=== PATIENT | female | born 1950 | race Caucasian/White ===

== ENCOUNTER 2021-10-07 14:25 | Inpatient (IN) ==
[2021-10-07 15:02] LABS: ABS Lymphocytes 1.2 10^3/ul (1.0-4.8); ABS Monocytes 0.8 10^3/ul (0-0.8); ABS Neutrophils 13.9 10^3/ul (1.5-7.7); Hematocrit 30 % (35-47); Hemoglobin 9.8 g/dL (12.0-16.0); Lymphocyte % 7.2 %; Mean Corpuscular HGB Conc 32 g/dL (31-36); Mean Corpuscular Hemoglobin 27 pg (27-31); Mean Corpuscular Volume 82 fL (80-97); Mean Platelet Volume 6.7 fL (7.4-10.4); Platelet Count 403 10^3/uL (150-450); Red Blood Count 3.69 10^6 /uL (3.70-4.87); Red Cell Distribution Width 18 % (10-15); White Blood Count 15.9 10^3/uL (3.5-10.8)
[2021-10-07 15:15] LABS: Activated Partial Thrombo Time 49.3 seconds (26.0-38.0); INR 3.79 (0.86-1.15)
[2021-10-07] MEDS ORDERED: Vancomycin 1,250 MG in NS 0.9% 250 ml 250 ML IVPB ONE (15:52)
[2021-10-07] MEDS ORDERED: Dextrose 50% Syringe 50 ml 25 GM/50 ML SYRINGE ONE (16:09)
[2021-10-07] MEDS ORDERED: Dextrose 50% VIAL 50 ml IV PRN (16:16)
[2021-10-07] MEDS ORDERED: NS 0.9% 250 ml 250 ML ONE (16:33)
[2021-10-07 16:40] LABS: High Sensitivity Troponin 1 Hr 199 pg/mL (<15)
[2021-10-07 16:45] LABS: Albumin 2.1 g/dL (3.2-5.2); Calcium 6.8 mg/dL (8.6-10.3); Potassium 4.2 mmol/L (3.5-5.0); Total Bilirubin 0.1 mg/dL (0.2-1.0)
[2021-10-07 16:46] LABS: Albumin/Globulin Ratio 0.9 (1-3); C Reactive Protein 15.15 mg/L (<8.01); Globulin 2.4 g/dL (2-4); Total Protein 4.5 g/dL (6.4-8.9); eGFR CKD-EPI 53.1 (>60)
[2021-10-07] MEDS ORDERED: HYDROcodone/ACETAMIN 5/325 mg TAB PO ONE (16:52)
[2021-10-07] MEDS ORDERED: D10W 1000 ml BAG 1,000 ML IV SCH (17:00)
[2021-10-07 17:19] LABS: Urine Appearance Cloudy; Urine Bilirubin Negative (Negative); Urine Blood Negative (Negative); Urine Color Yellow; Urine Glucose 1+(50 mg/dL) (Negative); Urine Ketones Negative (Negative); Urine Nitrite Negative (Negative); Urine Protein 3+(>=500 mg/dL) (Negative); Urine Specific Gravity 1.015 (1.002-1.030); Urine Urobilinogen Negative (Negative)
[2021-10-07] MEDS ORDERED: Remdesivir 100 mg Vial 200 MG in NS 0.9% 250 ml 210 ML IV ONE (17:23)
[2021-10-07 17:24] LABS: Urine Bacteria Absent (Absent); Urine Red Blood Cell Trace(0-2/hpf) (Absent); Urine White Blood Cell Trace(0-5/hpf) (Absent)
[2021-10-07] MEDS ORDERED: Vancomycin 1500 MG IV - x ONCE IVPB ONE (18:00)
[2021-10-07] MEDS ORDERED: D5W 1000 ml BAG 1,000 ML IV SCH (18:00)
[2021-10-07] MEDS ORDERED: Vancomycin per Pharmacy 1 EA NOTE FOLLOW UP SCH (18:00)
[2021-10-07] MEDS ORDERED: Cefepime 2 GM in Dextrose 2 GM/50 ML BAG IV SCH (18:00)
[2021-10-07] MEDS ORDERED: HYDROcodone/ACETAMIN 5/325 mg TAB PO PRN (18:03)
[2021-10-07] MEDS: D5W 1/2 NS 1000 ml BAG 1,000 ML IV SCH (18:41)
[2021-10-07 18:53] LABS: TSH Ultra Thyroid Stim Horm 2.77 mcIU/mL (0.34-5.60)
[2021-10-08] MEDS: Cefepime 2 GM in Dextrose 2 GM/50 ML BAG IV SCH ×2 (00:54→18:20)
[2021-10-08] MEDS: D5W 1/2 NS 1000 ml BAG 1,000 ML IV SCH (09:26)
[2021-10-08 10:07] LABS: CO2 Carbon Dioxide 18 mmol/L (22-32); Calcium 6.6 mg/dL (8.6-10.3); Chloride 103 mmol/L (101-111); Magnesium 1.7 mg/dL (1.9-2.7); Sodium 134 mmol/L (135-145)
[2021-10-08 10:13] LABS: ALT 23 U/L (7-52); Albumin/Globulin Ratio 0.9 (1-3); Alkaline Phosphatase 89 U/L (35-149); Blood Urea Nitrogen 34 mg/dL (6-24); Globulin 2.3 g/dL (2-4); Glucose 109 mg/dL (70-100); Total Protein 4.3 g/dL (6.4-8.9); eGFR CKD-EPI 47.8 (>60)
[2021-10-08 10:25] LABS: Anion Gap 13 mmol/L (2-11)
[2021-10-08 12:21] LABS: ABS Lymphocytes 1.1 10^3/ul (1.0-4.8); ABS Monocytes 0.3 10^3/ul (0-0.8); ABS Neutrophils 8.4 10^3/ul (1.5-7.7); Hematocrit 30 % (35-47); Hemoglobin 9.4 g/dL (12.0-16.0); Lymphocyte % 11.1 %; Mean Corpuscular HGB Conc 32 g/dL (31-36); Mean Corpuscular Hemoglobin 26 pg (27-31); Mean Corpuscular Volume 83 fL (80-97); Platelet Count 398 10^3/uL (150-450); Red Blood Count 3.59 10^6 /uL (3.70-4.87); Red Cell Distribution Width 18 % (10-15); White Blood Count 9.8 10^3/uL (3.5-10.8)
[2021-10-08] MEDS ORDERED: Magnesium Sulfate 2 gm BAG 2 GM/50 ML BAG IVPB ONE (13:22)
[2021-10-08 14:07] LABS: INR 6.87 (0.86-1.15)
[2021-10-08 14:15] LABS: Potassium Redraw 4.1 mmol/L (3.5-5.0)
[2021-10-08] MEDS: Furosemide 40 mg/4 ml IV VIAL IV SLOW PU ONE (16:32)
[2021-10-08] MEDS: Vancomycin 1,500 MG in NS 0.9% 250 ml 250 ML IVPB SCH (20:08)
[2021-10-08] MEDS: Remdesivir 100 mg Vial 100 MG in NS 0.9% 250 ml 230 ML IV SCH (23:54)
[2021-10-09 00:31] LABS: PCO2 Arterial 48 mmHg (35-45); PO2 Arterial 84 mmHg (80-100)
[2021-10-09] MEDS ORDERED: Acetaminophen IV 1 GM/100ML 100 ML IV PRN (11:29)
[2021-10-09] MEDS ORDERED: Morphine 4 MG/ML VIAL (1 ml) ONE (11:32)
[2021-10-09] MEDS ORDERED: Morphine 4 MG/ML VIAL (1 ml) IV PRN (11:55)
[2021-10-09 14:08] LABS: ABS Lymphocytes 1.4 10^3/ul (1.0-4.8); ABS Monocytes 0.4 10^3/ul (0-0.8); ABS Neutrophils 9.4 10^3/ul (1.5-7.7); Eosinophil % 0.2 %; Hematocrit 28 % (35-47); Hemoglobin 8.8 g/dL (12.0-16.0); Lymphocyte % 12.7 %; Mean Corpuscular HGB Conc 31 g/dL (31-36); Mean Corpuscular Hemoglobin 26 pg (27-31); Mean Corpuscular Volume 83 fL (80-97); Mean Platelet Volume 6.8 fL (7.4-10.4); Platelet Count 348 10^3/uL (150-450); Red Blood Count 3.36 10^6 /uL (3.70-4.87); Red Cell Distribution Width 18 % (10-15); White Blood Count 11.2 10^3/uL (3.5-10.8)
[2021-10-09 14:30] LABS: Calcium 6.7 mg/dL (8.6-10.3); Magnesium 1.9 mg/dL (1.9-2.7); Potassium 4.1 mmol/L (3.5-5.0); eGFR CKD-EPI 40.4 (>60)
[2021-10-09 14:36] LABS: INR 6.58 (0.86-1.15)
[2021-10-09] MEDS ORDERED: Iodixanol (CONTRAST) 320 MG/ML 100 ML SDV IV ONE (15:09)
[2021-10-09] MEDS ORDERED: Phytonadione Oral Solution 5 MG/25 ML UDC PO ONE (16:35)
[2021-10-09] MEDS: Vancomycin 1,500 MG in NS 0.9% 250 ml 250 ML IVPB SCH (17:43)
[2021-10-09] MEDS ORDERED: NS 0.9% 500 ml BAG 500 ML IV ONE (17:58)
[2021-10-09] MEDS: HYDROcodone/ACETAMIN 5/325 mg TAB PO PRN (20:37)
[2021-10-09] MEDS: Senna TAB 8.6 mg TAB PO SCH (20:39)
[2021-10-09] MEDS: Cefepime 2 GM in Dextrose 2 GM/50 ML BAG IV SCH (20:43)
[2021-10-09] MEDS: Polyethylene Glycol 3350 17 GM PACKET PO SCH (21:10)
[2021-10-09] MEDS: CALCIUM GLUCONATE 1GM/50ML NS 1 GM/50 ML BAG IV SCH (22:06)
[2021-10-09] MEDS: Remdesivir 100 mg Vial 100 MG in NS 0.9% 250 ml 230 ML IV SCH (22:30)
[2021-10-10] MEDS: CALCIUM GLUCONATE 1GM/50ML NS 1 GM/50 ML BAG IV SCH (01:12)
[2021-10-10] MEDS: HYDROcodone/ACETAMIN 5/325 mg TAB PO PRN ×2 (02:22→17:32)
[2021-10-10] MEDS: Polyethylene Glycol 3350 17 GM PACKET PO SCH ×2 (08:32→14:29)
[2021-10-10] MEDS ORDERED: Etomidate 40 mg/20 ml (2 MG/ML) 20 ml VIAL (40 mg) ONE (08:58)
[2021-10-10] MEDS ORDERED: Dextrose 50% Syringe 50 ml 25 GM/50 ML SYRINGE ONE (12:48)
[2021-10-10] MEDS ORDERED: Vancomycin Trough Check NOTE FOLLOW UP ONE (16:30)
[2021-10-10 16:55] LABS: Hematocrit 28 % (35-47); Hemoglobin 8.7 g/dL (12.0-16.0); Mean Corpuscular HGB Conc 32 g/dL (31-36); Mean Corpuscular Hemoglobin 26 pg (27-31); Mean Corpuscular Volume 82 fL (80-97); Platelet Count 326 10^3/uL (150-450); Red Blood Count 3.34 10^6 /uL (3.70-4.87); Red Cell Distribution Width 18 % (10-15); White Blood Count 12.1 10^3/uL (3.5-10.8)
[2021-10-10 16:56] LABS: INR 1.63 (0.86-1.15)
[2021-10-10 17:09] LABS: Calcium 7.1 mg/dL (8.6-10.3); Magnesium 1.9 mg/dL (1.9-2.7); Potassium 4.2 mmol/L (3.5-5.0); eGFR CKD-EPI 33.6 (>60)
[2021-10-10] MEDS: Cefepime 2 GM in Dextrose 2 GM/50 ML BAG IV SCH (17:26)
[2021-10-10] MEDS: Vancomycin 1,500 MG in NS 0.9% 250 ml 250 ML IVPB SCH (17:59)
[2021-10-10] MEDS: Remdesivir 100 mg Vial 100 MG in NS 0.9% 250 ml 230 ML IV SCH (20:33)
[2021-10-11] MEDS: Senna TAB 8.6 mg TAB PO SCH ×2 (01:10→03:02)
[2021-10-11] MEDS: Polyethylene Glycol 3350 17 GM PACKET PO SCH ×2 (01:10→09:31)
[2021-10-11] MEDS: HYDROcodone/ACETAMIN 5/325 mg TAB PO PRN (03:02)
[2021-10-11] MEDS ORDERED: Warfarin per PHARMACY **NOTE FOLLOW UP SCH (08:00)
[2021-10-11] MEDS: Morphine 4 MG/ML VIAL (1 ml) IV PRN ×2 (10:20→15:29)
[2021-10-11] MEDS ORDERED: Vancomycin Random Level NOTE FOLLOW UP ONE (12:00)
[2021-10-11 13:20] LABS: Calcium 7.1 mg/dL (8.6-10.3); Magnesium 1.9 mg/dL (1.9-2.7); Potassium 4.3 mmol/L (3.5-5.0); eGFR CKD-EPI 30.6 (>60)
[2021-10-11 13:33] LABS: ABS Basophils 0.1 10^3/ul (0-0.2); ABS Monocytes 0.5 10^3/ul (0-0.8); ABS Neutrophils 14.1 10^3/ul (1.5-7.7); Hematocrit 29 % (35-47); Hemoglobin 8.9 g/dL (12.0-16.0); Lymphocyte % 6.1 %; Mean Corpuscular HGB Conc 31 g/dL (31-36); Mean Corpuscular Hemoglobin 26 pg (27-31); Mean Corpuscular Volume 82 fL (80-97); Platelet Count 319 10^3/uL (150-450); Red Blood Count 3.49 10^6 /uL (3.70-4.87); Red Cell Distribution Width 17 % (10-15); White Blood Count 15.7 10^3/uL (3.5-10.8)
[2021-10-11 14:21] LABS: Vancomycin Random 20.6 mcg/mL
[2021-10-11] MEDS: cefTRIAXone 2 GM ADDV.VIAL 2 GM in NS 0.9% 100 ml BAG 100 ML IV SCH (16:32)
[2021-10-11] MEDS ORDERED: Furosemide 40 mg/4 ml IV VIAL IV SLOW PU ONE (16:50)
[2021-10-11] MEDS: Remdesivir 100 mg Vial 100 MG in NS 0.9% 250 ml 230 ML IV SCH (21:49)
[2021-10-12] MEDS ORDERED: Furosemide 40 mg/4 ml IV VIAL ONE (04:13)
[2021-10-12] MEDS: Furosemide 40 mg/4 ml IV VIAL IV SLOW PU ONE (04:17)
[2021-10-12 05:19] LABS: INR 1.76 (0.86-1.15)
[2021-10-12 05:24] LABS: Hematocrit 31 % (35-47); Hemoglobin 9.6 g/dL (12.0-16.0); Mean Corpuscular HGB Conc 31 g/dL (31-36); Mean Corpuscular Hemoglobin 26 pg (27-31); Mean Corpuscular Volume 86 fL (80-97); Mean Platelet Volume 6.8 fL (7.4-10.4); Platelet Count 455 10^3/uL (150-450); Red Blood Count 3.65 10^6 /uL (3.70-4.87); Red Cell Distribution Width 18 % (10-15); White Blood Count 19.5 10^3/uL (3.5-10.8)
[2021-10-12 05:41] LABS: Blood Urea Nitrogen 46 mg/dL (6-24); CO2 Carbon Dioxide 20 mmol/L (22-32); Calcium 7.4 mg/dL (8.6-10.3); Chloride 107 mmol/L (101-111); Glucose 161 mg/dL (70-100); Sodium 136 mmol/L (135-145); eGFR CKD-EPI 25.6 (>60)
[2021-10-12 05:49] LABS: Anion Gap 9 mmol/L (2-11)
[2021-10-12 06:27] LABS: PCO2 Arterial 70 mmHg (35-45)
[2021-10-12 06:41] LABS: PO2 Arterial Temp Correct <38 mmHg (80-100)
[2021-10-12 08:05] LABS: PCO2 Arterial 50 mmHg (35-45); PO2 Arterial 159 mmHg (80-100)
[2021-10-12] MEDS ORDERED: Vancomycin 1,500 MG in NS 0.9% 250 ml 250 ML IVPB ONE (09:00)
[2021-10-12] MEDS ORDERED: Thrombin 5,000 UNITS 1 APPLIC KIT - topical use - TOPICAL ONE (10:00)
[2021-10-12] MEDS ORDERED: Dexamethasone IV 6 MG in NS 0.9% 50 ML 50 ML IVPB SCH (11:00)
[2021-10-12] MEDS: Dexamethasone IV 4 MG/ML VIAL 1 ml VIAL IV SLOW PU SCH (12:14)
[2021-10-12] MEDS ORDERED: LORazepam 2 mg VIAL 1 ml IV PUSH ONE (13:00)
[2021-10-12] MEDS ORDERED: Lorazepam PYXIS KEY ONE (13:01)
[2021-10-12] MEDS ORDERED: LORazepam 2 mg VIAL 1 ml ONE (13:01)
[2021-10-12] MEDS ORDERED: Warfarin - No Order Today **NOTE FOLLOW UP ONE (17:00)
[2021-10-12] MEDS ORDERED: Warfarin DAILY REMINDER **NOTE FOLLOW UP SCH (17:00)
[2021-10-12] MEDS: cefTRIAXone 2 GM ADDV.VIAL 2 GM in NS 0.9% 100 ml BAG 100 ML IV SCH (17:34)
[2021-10-12] MEDS ORDERED: Rocuronium 50 mg VIAL 10 mg/ml 5 ml VIAL (50 mg) ONE ×2 (20:40→20:54)
[2021-10-12] MEDS ORDERED: Succinylcholine 200 mg VIAL 20 mg/ml 10 ml VIAL (200 mg) ONE (20:40)
[2021-10-12] MEDS ORDERED: Propofol 10 mg/ml 100 ML BTL 100 ML ONE (20:42)
[2021-10-12] MEDS ORDERED: Norepinephrine 16MCG/ML BAGD5W 4,000 MCG/250 ML BAG IV ONE (20:42)
[2021-10-12] MEDS: Chlorhexidine MOUTHWASH 0.12% 15 ML UDC SWISH SPIT SCH (22:00)
[2021-10-12] MEDS ORDERED: Norepinephrine 16MCG/ML BAGD5W 4,000 MCG/250 ML BAG IV SCH (22:00)
[2021-10-12] MEDS ORDERED: Norepinephrine 16MCG/ML BAG NS 4,000 MCG/250 ML BAG IV SCH (22:00)
[2021-10-12] MEDS: Pantoprazole VIAL 40 MG VIAL IV SCH (22:00)
[2021-10-12] MEDS: Propofol 10 mg/ml 100 ML BTL 100 ML IV SCH (22:00)
[2021-10-13] MEDS: Chlorhexidine MOUTHWASH 0.12% 15 ML UDC SWISH SPIT SCH ×6 (02:00→22:27)
[2021-10-13 04:26] LABS: Hematocrit 32 % (35-47); Hemoglobin 9.7 g/dL (12.0-16.0); Mean Corpuscular HGB Conc 31 g/dL (31-36); Mean Corpuscular Hemoglobin 26 pg (27-31); Mean Corpuscular Volume 84 fL (80-97); Mean Platelet Volume 7.1 fL (7.4-10.4); Platelet Count 382 10^3/uL (150-450); Red Blood Count 3.73 10^6 /uL (3.70-4.87); Red Cell Distribution Width 18 % (10-15); White Blood Count 21.3 10^3/uL (3.5-10.8)
[2021-10-13 04:28] LABS: ABS Basophils 0.1 10^3/ul (0-0.2); ABS Lymphocytes 0.8 10^3/ul (1.0-4.8); ABS Monocytes 0.8 10^3/ul (0-0.8); ABS Neutrophils 19.6 10^3/ul (1.5-7.7); Lymphocyte % 3.7 %; Nucleated Red Blood Cells % 0.1
[2021-10-13 04:50] LABS: Albumin 1.9 g/dL (3.2-5.2); Albumin/Globulin Ratio 0.8 (1-3); Calcium 7.2 mg/dL (8.6-10.3); Globulin 2.4 g/dL (2-4); Potassium 4.6 mmol/L (3.5-5.0); Total Bilirubin 0.3 mg/dL (0.2-1.0); Total Protein 4.3 g/dL (6.4-8.9); Vancomycin Random 28.3 mcg/mL
[2021-10-13] MEDS ORDERED: Vancomycin Random Level NOTE FOLLOW UP ONE (06:00)
[2021-10-13] MEDS ORDERED: Furosemide 40 mg/4 ml IV VIAL IV ONE (08:44)
[2021-10-13] MEDS: Dexamethasone IV 4 MG/ML VIAL 1 ml VIAL IV SLOW PU SCH (09:28)
[2021-10-13] MEDS: Propofol 10 mg/ml 100 ML BTL 100 ML IV SCH ×2 (09:36→18:00)
[2021-10-13] MEDS ORDERED: Furosemide 100 mg/10 ml IV VIAL IV ONE (14:00)
[2021-10-13] MEDS: cefTRIAXone 2 GM ADDV.VIAL 2 GM in NS 0.9% 100 ml BAG 100 ML IV SCH (18:04)
[2021-10-13] MEDS: Pantoprazole VIAL 40 MG VIAL IV SCH (22:28)
[2021-10-14] MEDS: Chlorhexidine MOUTHWASH 0.12% 15 ML UDC SWISH SPIT SCH ×6 (01:28→21:58)
[2021-10-14] MEDS: Propofol 10 mg/ml 100 ML BTL 100 ML IV SCH ×2 (04:59→12:24)
[2021-10-14] MEDS ORDERED: Vancomycin Random Level NOTE FOLLOW UP ONE (06:00)
[2021-10-14 06:39] LABS: ABS Lymphocytes 0.9 10^3/ul (1.0-4.8); ABS Monocytes 0.7 10^3/ul (0-0.8); ABS Neutrophils 18.4 10^3/ul (1.5-7.7); Hematocrit 29 % (35-47); Hemoglobin 9.1 g/dL (12.0-16.0); Lymphocyte % 4.4 %; Mean Corpuscular HGB Conc 32 g/dL (31-36); Mean Corpuscular Hemoglobin 26 pg (27-31); Mean Corpuscular Volume 82 fL (80-97); Mean Platelet Volume 7.4 fL (7.4-10.4); Platelet Count 318 10^3/uL (150-450); Red Cell Distribution Width 19 % (10-15)
[2021-10-14 06:42] LABS: INR 3.06 (0.86-1.15)
[2021-10-14 06:59] LABS: Albumin 1.8 g/dL (3.2-5.2); Albumin/Globulin Ratio 0.8 (1-3); Calcium 7.2 mg/dL (8.6-10.3); Globulin 2.3 g/dL (2-4); Total Bilirubin 0.3 mg/dL (0.2-1.0); Total Protein 4.1 g/dL (6.4-8.9); Vancomycin Random 26.9 mcg/mL; eGFR CKD-EPI 20.9 (>60)
[2021-10-14] MEDS: Dexamethasone IV 4 MG/ML VIAL 1 ml VIAL IV SLOW PU SCH (08:40)
[2021-10-14] MEDS ORDERED: Furosemide 100 mg/10 ml IV VIAL IV ONE (10:15)
[2021-10-14] MEDS: cefTRIAXone 2 GM ADDV.VIAL 2 GM in NS 0.9% 100 ml BAG 100 ML IV SCH (17:42)
[2021-10-14] MEDS ORDERED: Dextrose 50% Syringe 50 ml 25 GM/50 ML SYRINGE IV PUSH PRN (18:44)
[2021-10-14] MEDS: Pantoprazole VIAL 40 MG VIAL IV SCH (21:58)
[2021-10-15] MEDS: Chlorhexidine MOUTHWASH 0.12% 15 ML UDC SWISH SPIT SCH ×6 (01:03→20:00)
[2021-10-15] MEDS: Propofol 10 mg/ml 100 ML BTL 100 ML IV SCH (01:53)
[2021-10-15 05:14] LABS: Hematocrit 28 % (35-47); Hemoglobin 8.6 g/dL (12.0-16.0); Mean Corpuscular HGB Conc 31 g/dL (31-36); Mean Corpuscular Hemoglobin 25 pg (27-31); Mean Corpuscular Volume 81 fL (80-97); Mean Platelet Volume 7.4 fL (7.4-10.4); Platelet Count 337 10^3/uL (150-450); Red Cell Distribution Width 18 % (10-15); White Blood Count 20.3 10^3/uL (3.5-10.8)
[2021-10-15 05:39] LABS: Albumin 1.7 g/dL (3.2-5.2); Albumin/Globulin Ratio 0.7 (1-3); Calcium 7.2 mg/dL (8.6-10.3); Globulin 2.3 g/dL (2-4); Potassium 3.6 mmol/L (3.5-5.0); Total Bilirubin 0.3 mg/dL (0.2-1.0); Vancomycin Random 23.9 mcg/mL
[2021-10-15 07:20] LABS: ABS Basophils 0.1 10^3/ul (0-0.2); ABS Lymphocytes 0.8 10^3/ul (1.0-4.8); ABS Monocytes 0.7 10^3/ul (0-0.8); ABS Neutrophils 18.7 10^3/ul (1.5-7.7); Lymphocyte % 3.8 %
[2021-10-15] MEDS: Dexamethasone IV 4 MG/ML VIAL 1 ml VIAL IV SLOW PU SCH (09:22)
[2021-10-15] MEDS: cefTRIAXone 2 GM ADDV.VIAL 2 GM in NS 0.9% 100 ml BAG 100 ML IV SCH (16:38)
[2021-10-15] MEDS: Dextran 70/Hypromellose Tears Eye Drops 15 ml BTL (for Artificials Tears) BOTH EYES PRN ×2 (18:07→20:10)
[2021-10-15] MEDS: Pantoprazole VIAL 40 MG VIAL IV SCH (22:01)
[2021-10-15] MEDS: Morphine 4 MG/ML VIAL (1 ml) IV PRN (22:01)
[2021-10-16] MEDS: Chlorhexidine MOUTHWASH 0.12% 15 ML UDC SWISH SPIT SCH ×6 (00:36→20:40)
[2021-10-16] MEDS: Dextran 70/Hypromellose Tears Eye Drops 15 ml BTL (for Artificials Tears) BOTH EYES PRN ×2 (04:29→20:43)
[2021-10-16 04:41] LABS: ABS Lymphocytes 1.1 10^3/ul (1.0-4.8); ABS Monocytes 0.8 10^3/ul (0-0.8); ABS Neutrophils 13.5 10^3/ul (1.5-7.7); Eosinophil % 0.1 %; Hematocrit 25 % (35-47); Hemoglobin 7.9 g/dL (12.0-16.0); Lymphocyte % 6.9 %; Mean Corpuscular HGB Conc 31 g/dL (31-36); Mean Corpuscular Hemoglobin 25 pg (27-31); Mean Corpuscular Volume 81 fL (80-97); Mean Platelet Volume 7.2 fL (7.4-10.4); Platelet Count 315 10^3/uL (150-450); Red Blood Count 3.12 10^6 /uL (3.70-4.87); Red Cell Distribution Width 18 % (10-15); White Blood Count 15.4 10^3/uL (3.5-10.8)
[2021-10-16] MEDS: Morphine 4 MG/ML VIAL (1 ml) IV PRN (05:00)
[2021-10-16 05:05] LABS: ALT 21 U/L (7-52); AST 18 U/L (13-39); Albumin < 1.7 g/dL (3.2-5.2); Albumin/Globulin Ratio 0.9 (1-3); Alkaline Phosphatase 70 U/L (35-149); Anion Gap 10 mmol/L (2-11); Blood Urea Nitrogen 55 mg/dL (6-24); CO2 Carbon Dioxide 23 mmol/L (22-32); Calcium 6.9 mg/dL (8.6-10.3); Chloride 109 mmol/L (101-111); Globulin 1.9 g/dL (2-4); Glucose 84 mg/dL (70-100); Magnesium 1.9 mg/dL (1.9-2.7); Phosphorus 5.5 mg/dL (2.5-5.0); Potassium 3.1 mmol/L (3.5-5.0); Sodium 142 mmol/L (135-145); Total Protein 3.6 g/dL (6.4-8.9); Vancomycin Random 23.1 mcg/mL; eGFR CKD-EPI 20.7 (>60)
[2021-10-16] MEDS ORDERED: Vancomycin Random Level NOTE FOLLOW UP ONE (06:00)
[2021-10-16] MEDS: Dexamethasone IV 4 MG/ML VIAL 1 ml VIAL IV SLOW PU SCH (08:20)
[2021-10-16] MEDS: KCL 20 MEQ/100 ML IVPREMIX 20 MEQ/100 ML BAG IV SCH ×2 (08:20→10:51)
[2021-10-16 10:43] LABS: INR 2.22 (0.86-1.15)
[2021-10-16] MEDS: cefTRIAXone 2 GM ADDV.VIAL 2 GM in NS 0.9% 100 ml BAG 100 ML IV SCH (16:18)
[2021-10-16] MEDS: Pantoprazole VIAL 40 MG VIAL IV SCH (20:40)
[2021-10-17] MEDS: Dextran 70/Hypromellose Tears Eye Drops 15 ml BTL (for Artificials Tears) BOTH EYES PRN ×3 (00:01→20:05)
[2021-10-17] MEDS: Chlorhexidine MOUTHWASH 0.12% 15 ML UDC SWISH SPIT SCH ×6 (00:01→20:14)
[2021-10-17 04:58] LABS: ABS Basophils 0.1 10^3/ul (0-0.2); ABS Lymphocytes 1.4 10^3/ul (1.0-4.8); ABS Monocytes 1.2 10^3/ul (0-0.8); ABS Neutrophils 14.9 10^3/ul (1.5-7.7); Eosinophil % 0.2 %; Hematocrit 26 % (35-47); Hemoglobin 8.3 g/dL (12.0-16.0); Lymphocyte % 7.8 %; Mean Corpuscular HGB Conc 32 g/dL (31-36); Mean Corpuscular Hemoglobin 26 pg (27-31); Mean Corpuscular Volume 82 fL (80-97); Mean Platelet Volume 7.2 fL (7.4-10.4); Platelet Count 307 10^3/uL (150-450); Red Blood Count 3.21 10^6 /uL (3.70-4.87); Red Cell Distribution Width 19 % (10-15); White Blood Count 17.6 10^3/uL (3.5-10.8)
[2021-10-17 05:04] LABS: INR 2.23 (0.86-1.15)
[2021-10-17 05:52] LABS: ALT 21 U/L (7-52); AST 19 U/L (13-39); Albumin < 1.7 g/dL (3.2-5.2); Albumin/Globulin Ratio 0.9 (1-3); Alkaline Phosphatase 69 U/L (35-149); Anion Gap 10 mmol/L (2-11); Blood Urea Nitrogen 56 mg/dL (6-24); CO2 Carbon Dioxide 23 mmol/L (22-32); Chloride 111 mmol/L (101-111); Glucose 85 mg/dL (70-100); Potassium 3.5 mmol/L (3.5-5.0); Sodium 144 mmol/L (135-145); Total Protein 3.7 g/dL (6.4-8.9); Vancomycin Random 21.5 mcg/mL; eGFR CKD-EPI 22.8 (>60)
[2021-10-17] MEDS ORDERED: Furosemide 40 mg/4 ml IV VIAL IV SLOW PU ONE (13:40)
[2021-10-17] MEDS: Morphine 4 MG/ML VIAL (1 ml) IV PRN (17:38)
[2021-10-18] MEDS: Chlorhexidine MOUTHWASH 0.12% 15 ML UDC SWISH SPIT SCH ×6 (01:26→21:06)
[2021-10-18 05:03] LABS: Hematocrit 28 % (35-47); Hemoglobin 8.6 g/dL (12.0-16.0); Mean Corpuscular HGB Conc 31 g/dL (31-36); Mean Corpuscular Hemoglobin 25 pg (27-31); Mean Corpuscular Volume 82 fL (80-97); Mean Platelet Volume 7.5 fL (7.4-10.4); Platelet Count 311 10^3/uL (150-450); Red Blood Count 3.39 10^6 /uL (3.70-4.87); Red Cell Distribution Width 18 % (10-15); White Blood Count 15.6 10^3/uL (3.5-10.8)
[2021-10-18 05:47] LABS: Potassium 2.9 mmol/L (3.5-5.0); eGFR CKD-EPI 25.6 (>60)
[2021-10-18] MEDS: KCL 20 MEQ/100 ML IVPREMIX 20 MEQ/100 ML BAG IV SCH ×5 (06:20→18:25)
[2021-10-18] MEDS: Famotidine SUSP ORALSYR 8 MG/ML G TUBE SCH (07:43)
[2021-10-18 07:55] LABS: Magnesium 1.9 mg/dL (1.9-2.7)
[2021-10-18] MEDS ORDERED: Magnesium Sulfate IV 1GM/100ML 1 GM/100 ML BAG IV ONE (08:03)
[2021-10-18] MEDS ORDERED: Furosemide 40 mg/4 ml IV VIAL IV ONE (09:37)
[2021-10-18] MEDS ORDERED: Warfarin per PHARMACY **NOTE FOLLOW UP SCH (10:00)
[2021-10-18] MEDS ORDERED: Sodium Phosphate ADULT ENEMA 133 ML BTL PR ONE (12:11)
[2021-10-18] MEDS ORDERED: Sodium Phosphate ADULT ENEMA 133 ML BTL ONE (12:24)
[2021-10-18] MEDS ORDERED: Mineral Oil ENEMA 118 ML/BOTTLE BOTTLE PR ONE (13:00)
[2021-10-19 00:08] LABS: Calcium 6.8 mg/dL (8.6-10.3); Potassium 3.7 mmol/L (3.5-5.0); eGFR CKD-EPI 33.1 (>60)
[2021-10-19 04:21] LABS: Hematocrit 29 % (35-47); Hemoglobin 8.9 g/dL (12.0-16.0); Mean Corpuscular HGB Conc 31 g/dL (31-36); Mean Corpuscular Hemoglobin 26 pg (27-31); Mean Corpuscular Volume 83 fL (80-97); Mean Platelet Volume 8.1 fL (7.4-10.4); Platelet Count 294 10^3/uL (150-450); Red Blood Count 3.45 10^6 /uL (3.70-4.87); Red Cell Distribution Width 19 % (10-15); White Blood Count 16.3 10^3/uL (3.5-10.8)
[2021-10-19 04:30] LABS: INR 1.45 (0.86-1.15)
[2021-10-19] MEDS: Chlorhexidine MOUTHWASH 0.12% 15 ML UDC SWISH SPIT SCH ×6 (04:46→22:49)
[2021-10-19 04:58] LABS: Calcium 7.2 mg/dL (8.6-10.3); Potassium 3.6 mmol/L (3.5-5.0)
[2021-10-19] MEDS ORDERED: Furosemide 40 mg/4 ml IV VIAL IV SLOW PU ONE (07:22)
[2021-10-19] MEDS ORDERED: KCL 20 MEQ/100 ML IVPREMIX 20 MEQ/100 ML BAG IV SCH (08:00)
[2021-10-19] MEDS: KCL premix 10 MEQ/50 ML x 4 RUNS IV SCH ×4 (08:09→11:52)
[2021-10-19] MEDS: Famotidine SUSP ORALSYR 8 MG/ML G TUBE SCH (08:12)
[2021-10-19] MEDS ORDERED: Piperacillin/Tazobac ADVAN 3.375 GM in NS 0.9% 100 ml BAG 100 ML IV ONE (09:35)
[2021-10-19] MEDS ORDERED: Zosyn per Pharmacy NOTE FOLLOW UP SCH (10:00)
[2021-10-19] MEDS ORDERED: Meropenem 1 GM PREMIX(*) 1 GM/50 ML BAG IV SCH (11:00)
[2021-10-19] MEDS: Aztreonam 1 GM in NS 0.9% 50 ML 50 ML IV SCH ×2 (11:52→21:48)
[2021-10-19] MEDS: Linezolid 600 MG IVPREMIX(*) 600 MG/300 ML BAG IVPB SCH (13:09)
[2021-10-19 13:20] LABS: Magnesium 1.7 mg/dL (1.9-2.7)
[2021-10-19] MEDS ORDERED: Magnesium Sulfate 2 gm BAG 2 GM/50 ML BAG IVPB ONE (13:39)
[2021-10-20] MEDS: Linezolid 600 MG IVPREMIX(*) 600 MG/300 ML BAG IVPB SCH ×2 (00:35→12:06)
[2021-10-20] MEDS: Chlorhexidine MOUTHWASH 0.12% 15 ML UDC SWISH SPIT SCH ×4 (02:27→16:01)
[2021-10-20 04:36] LABS: Hematocrit 25 % (35-47); Hemoglobin 7.8 g/dL (12.0-16.0); Mean Corpuscular HGB Conc 31 g/dL (31-36); Mean Corpuscular Hemoglobin 26 pg (27-31); Mean Corpuscular Volume 83 fL (80-97); Mean Platelet Volume 7.9 fL (7.4-10.4); Platelet Count 220 10^3/uL (150-450); Red Blood Count 3.04 10^6 /uL (3.70-4.87); Red Cell Distribution Width 19 % (10-15); White Blood Count 14.5 10^3/uL (3.5-10.8)
[2021-10-20 04:50] LABS: INR 1.36 (0.86-1.15)
[2021-10-20 05:12] LABS: Calcium 6.8 mg/dL (8.6-10.3); Magnesium 2.2 mg/dL (1.9-2.7); Potassium 3.3 mmol/L (3.5-5.0); eGFR CKD-EPI 34.9 (>60)
[2021-10-20] MEDS: Aztreonam 1 GM in NS 0.9% 50 ML 50 ML IV SCH ×3 (05:43→20:12)
[2021-10-20] MEDS ORDERED: Furosemide 40 mg/4 ml IV VIAL IV SLOW PU ONE (07:36)
[2021-10-20] MEDS: Famotidine SUSP ORALSYR 8 MG/ML G TUBE SCH (08:50)
[2021-10-20] MEDS: KCL 20 MEQ/100 ML IVPREMIX 20 MEQ/100 ML BAG IV SCH ×3 (08:50→13:52)
[2021-10-21] MEDS: Linezolid 600 MG IVPREMIX(*) 600 MG/300 ML BAG IVPB SCH ×3 (00:37→23:12)
[2021-10-21 04:33] LABS: Hematocrit 24 % (35-47); Hemoglobin 7.6 g/dL (12.0-16.0); Mean Corpuscular HGB Conc 31 g/dL (31-36); Mean Corpuscular Hemoglobin 26 pg (27-31); Mean Corpuscular Volume 83 fL (80-97); Mean Platelet Volume 7.9 fL (7.4-10.4); Platelet Count 207 10^3/uL (150-450); Red Blood Count 2.92 10^6 /uL (3.70-4.87); Red Cell Distribution Width 19 % (10-15); White Blood Count 13.7 10^3/uL (3.5-10.8)
[2021-10-21 04:36] LABS: INR 1.82 (0.86-1.15)
[2021-10-21] MEDS: Aztreonam 1 GM in NS 0.9% 50 ML 50 ML IV SCH ×3 (04:40→20:28)
[2021-10-21 05:00] LABS: Calcium 6.8 mg/dL (8.6-10.3); Magnesium 1.9 mg/dL (1.9-2.7); eGFR CKD-EPI 45.1 (>60)
[2021-10-21 05:09] LABS: Calcium 6.9 mg/dL (8.6-10.3); Magnesium 1.9 mg/dL (1.9-2.7)
[2021-10-21 05:17] LABS: eGFR CKD-EPI 43.8 (>60)
[2021-10-21 05:18] LABS: Phosphorus 2.9 mg/dL (2.5-5.0)
[2021-10-21] MEDS: KCL 20 MEQ/100 ML IVPREMIX 20 MEQ/100 ML BAG IV SCH ×3 (05:42→11:31)
[2021-10-21] MEDS ORDERED: Magnesium Sulfate IV 1GM/100ML 1 GM/100 ML BAG IV ONE (07:30)
[2021-10-21] MEDS ORDERED: KCL 20 MEQ/100 ML IVPREMIX 20 MEQ/100 ML BAG IV SCH (08:00)
[2021-10-21] MEDS: Famotidine SUSP ORALSYR 8 MG/ML G TUBE SCH (08:37)
[2021-10-21] MEDS: Saline FLUSH-PERIPHERAL 10 ML SYRINGE IV FLUSH SCH ×2 (11:32→19:23)
[2021-10-21 12:08] LABS: C Reactive Protein 115.67 mg/L (<8.01)
[2021-10-21 16:17] LABS: eGFR CKD-EPI 49.8 (>60)
[2021-10-22] MEDS: Saline FLUSH-PERIPHERAL 10 ML SYRINGE IV FLUSH SCH ×3 (03:47→19:54)
[2021-10-22] MEDS: Aztreonam 1 GM in NS 0.9% 50 ML 50 ML IV SCH ×3 (03:48→19:53)
[2021-10-22 04:50] LABS: Hematocrit 26 % (35-47); Mean Corpuscular HGB Conc 31 g/dL (31-36); Mean Corpuscular Hemoglobin 26 pg (27-31); Mean Corpuscular Volume 83 fL (80-97); Platelet Count 202 10^3/uL (150-450); Red Blood Count 3.14 10^6 /uL (3.70-4.87); Red Cell Distribution Width 20 % (10-15); White Blood Count 13.7 10^3/uL (3.5-10.8)
[2021-10-22 05:32] LABS: INR 2.31 (0.86-1.15)
[2021-10-22 05:37] LABS: Calcium 6.8 mg/dL (8.6-10.3); Potassium 3.6 mmol/L (3.5-5.0); eGFR CKD-EPI 52.5 (>60)
[2021-10-22] MEDS ORDERED: Furosemide 40 mg/4 ml IV VIAL IV SLOW PU ONE (09:04)
[2021-10-22] MEDS: Famotidine SUSP ORALSYR 8 MG/ML G TUBE SCH (09:22)
[2021-10-22] MEDS: KCL 20 MEQ/100 ML IVPREMIX 20 MEQ/100 ML BAG IV SCH ×2 (09:38→11:48)
[2021-10-22 18:47] LABS: Blood Urea Nitrogen 37 mg/dL (6-24); CO2 Carbon Dioxide 19 mmol/L (22-32); Glucose 107 mg/dL (70-100); Magnesium 1.4 mg/dL (1.9-2.7); Sodium 142 mmol/L (135-145); eGFR CKD-EPI 85.4 (>60)
[2021-10-22 18:53] LABS: Anion Gap 4 mmol/L (2-11); Calcium 4.8 mg/dL (8.6-10.3); Chloride 119 mmol/L (101-111)
[2021-10-22 20:53] LABS: Potassium 3.6 mmol/L (3.5-5.0); eGFR CKD-EPI 53.1 (>60)
[2021-10-23] MEDS: Saline FLUSH-PERIPHERAL 10 ML SYRINGE IV FLUSH SCH ×3 (04:16→17:57)
[2021-10-23] MEDS: Aztreonam 1 GM in NS 0.9% 50 ML 50 ML IV SCH ×3 (05:41→21:10)
[2021-10-23 05:57] LABS: Hematocrit 27 % (35-47); Hemoglobin 8.1 g/dL (12.0-16.0); Mean Corpuscular HGB Conc 31 g/dL (31-36); Mean Corpuscular Hemoglobin 26 pg (27-31); Mean Corpuscular Volume 84 fL (80-97); Mean Platelet Volume 7.7 fL (7.4-10.4); Platelet Count 210 10^3/uL (150-450); Red Blood Count 3.18 10^6 /uL (3.70-4.87); Red Cell Distribution Width 20 % (10-15); White Blood Count 12.2 10^3/uL (3.5-10.8)
[2021-10-23 06:04] LABS: INR 2.14 (0.86-1.15)
[2021-10-23 06:40] LABS: Potassium 3.6 mmol/L (3.5-5.0); eGFR CKD-EPI 55.5 (>60)
[2021-10-23] MEDS ORDERED: KCL 20 MEQ/100 ML IVPREMIX 20 MEQ/100 ML BAG IV SCH (08:00)
[2021-10-23] MEDS: Famotidine SUSP ORALSYR 8 MG/ML G TUBE SCH (08:30)
[2021-10-23] MEDS: KCL premix 10 MEQ/50 ML x 4 RUNS IV SCH ×4 (09:13→13:41)
[2021-10-23] MEDS ORDERED: Furosemide 20 mg/2 ml IV VIAL IV SLOW PU ONE (11:02)
[2021-10-23] MEDS: CMCS: Oral Rinse (Biotene)(NF) 237 ML or 473 ML ORAL RINSE BTL MT SCH (21:35)
[2021-10-24] MEDS: Saline FLUSH-PERIPHERAL 10 ML SYRINGE IV FLUSH SCH ×3 (04:18→18:26)
[2021-10-24] MEDS: Aztreonam 1 GM in NS 0.9% 50 ML 50 ML IV SCH ×3 (05:43→20:58)
[2021-10-24 06:33] LABS: Hematocrit 26 % (35-47); Hemoglobin 8.1 g/dL (12.0-16.0); Mean Corpuscular HGB Conc 31 g/dL (31-36); Mean Corpuscular Hemoglobin 26 pg (27-31); Mean Corpuscular Volume 84 fL (80-97); Mean Platelet Volume 7.7 fL (7.4-10.4); Platelet Count 202 10^3/uL (150-450); Red Blood Count 3.07 10^6 /uL (3.70-4.87); Red Cell Distribution Width 20 % (10-15); White Blood Count 14.3 10^3/uL (3.5-10.8)
[2021-10-24 06:42] LABS: INR 2.15 (0.86-1.15)
[2021-10-24] MEDS ORDERED: Furosemide 40 mg/4 ml IV VIAL IV SLOW PU ONE (08:16)
[2021-10-24 08:39] LABS: Calcium 7.1 mg/dL (8.6-10.3); Potassium 3.9 mmol/L (3.5-5.0); eGFR CKD-EPI 58.8 (>60)
[2021-10-24] MEDS: Famotidine SUSP ORALSYR 8 MG/ML G TUBE SCH (09:15)
[2021-10-24] MEDS: CMCS: Oral Rinse (Biotene)(NF) 237 ML or 473 ML ORAL RINSE BTL MT SCH (09:18)
[2021-10-24] MEDS: HYDROmorphone 0.5 MG/0.5 ML SYRINGE IV PRN (22:16)
[2021-10-25] MEDS ORDERED: D5W 1/2 NS 1000 ml BAG 1,000 ML IV SCH (02:00)
[2021-10-25] MEDS: HYDROmorphone 0.5 MG/0.5 ML SYRINGE IV PRN ×2 (02:17→21:18)
[2021-10-25] MEDS: Saline FLUSH-PERIPHERAL 10 ML SYRINGE IV FLUSH SCH ×3 (02:18→20:55)
[2021-10-25] MEDS: Aztreonam 1 GM in NS 0.9% 50 ML 50 ML IV SCH ×3 (03:55→21:12)
[2021-10-25 04:07] LABS: Hematocrit 25 % (35-47); Hemoglobin 7.4 g/dL (12.0-16.0); INR 2.13 (0.86-1.15); Mean Corpuscular HGB Conc 30 g/dL (31-36); Mean Corpuscular Hemoglobin 26 pg (27-31); Mean Corpuscular Volume 86 fL (80-97); Mean Platelet Volume 7.6 fL (7.4-10.4); Platelet Count 167 10^3/uL (150-450); Red Blood Count 2.91 10^6 /uL (3.70-4.87); Red Cell Distribution Width 20 % (10-15); White Blood Count 13.6 10^3/uL (3.5-10.8)
[2021-10-25 04:42] LABS: Calcium 6.8 mg/dL (8.6-10.3); Magnesium 1.9 mg/dL (1.9-2.7); Potassium 3.8 mmol/L (3.5-5.0)
[2021-10-25 04:48] LABS: eGFR CKD-EPI 58.8 (>60)
[2021-10-25] MEDS ORDERED: Potassium Chloride LIQUID 20 MEQ/15 ML LIQUID PO ONE (07:44)
[2021-10-25] MEDS ORDERED: Magnesium Sulfate IV 1GM/100ML 1 GM/100 ML BAG IV ONE (07:44)
[2021-10-25] MEDS: Famotidine SUSP ORALSYR 8 MG/ML G TUBE SCH (08:03)
[2021-10-25] MEDS ORDERED: Furosemide 40 mg/4 ml IV VIAL IV SLOW PU ONE (10:08)
[2021-10-25 16:01] LABS: CO2 Carbon Dioxide 24 mmol/L (22-32); Chloride 110 mmol/L (101-111); Magnesium 2.2 mg/dL (1.9-2.7); Sodium 141 mmol/L (135-145)
[2021-10-25 16:03] LABS: Anion Gap 7 mmol/L (2-11)
[2021-10-25 16:06] LABS: Blood Urea Nitrogen 57 mg/dL (6-24); C Reactive Protein 111.01 mg/L (<8.01); Glucose 130 mg/dL (70-100); eGFR CKD-EPI 60.2 (>60)
[2021-10-25] MEDS ORDERED: Lorazepam PYXIS KEY PRN (22:06)
[2021-10-25] MEDS: LORazepam 2 mg VIAL 1 ml IV PUSH PRN (22:26)
[2021-10-26] MEDS: HYDROmorphone 0.5 MG/0.5 ML SYRINGE IV PRN (01:39)
[2021-10-26] MEDS: LORazepam 2 mg VIAL 1 ml IV PUSH PRN (02:43)
[2021-10-26] MEDS: Saline FLUSH-PERIPHERAL 10 ML SYRINGE IV FLUSH SCH ×3 (03:57→19:03)
[2021-10-26] MEDS: Aztreonam 1 GM in NS 0.9% 50 ML 50 ML IV SCH (04:46)
[2021-10-26 08:31] LABS: Hematocrit 20 % (35-47); Hemoglobin 6.3 g/dL (12.0-16.0); Mean Corpuscular HGB Conc 31 g/dL (31-36); Mean Corpuscular Hemoglobin 26 pg (27-31); Mean Corpuscular Volume 85 fL (80-97); Mean Platelet Volume 7.4 fL (7.4-10.4); Platelet Count 191 10^3/uL (150-450); Red Cell Distribution Width 20 % (10-15); White Blood Count 15.3 10^3/uL (3.5-10.8)
[2021-10-26 08:39] LABS: INR 2.32 (0.86-1.15)
[2021-10-26] MEDS: Famotidine SUSP ORALSYR 8 MG/ML G TUBE SCH (09:12)
[2021-10-26] MEDS: CMCS: Oral Rinse (Biotene)(NF) 237 ML or 473 ML ORAL RINSE BTL MT SCH (09:12)
[2021-10-26 09:44] LABS: Calcium 7.1 mg/dL (8.6-10.3); Magnesium 2.1 mg/dL (1.9-2.7); Potassium 3.7 mmol/L (3.5-5.0)
[2021-10-26 09:46] LABS: Hematocrit 24 % (35-47); Hemoglobin 7.3 g/dL (12.0-16.0)
[2021-10-26 09:50] LABS: eGFR CKD-EPI 59.5 (>60)
[2021-10-26] MEDS ORDERED: Furosemide 40 mg/4 ml IV VIAL IV SLOW PU ONE (09:57)
[2021-10-26] MEDS ORDERED: Naloxone Nasal Spray 4 MG/0.1 ML NASAL.SPR INTRANASAL ONE (10:14)
[2021-10-26] MEDS ORDERED: Acetaminophen IV 1 GM/100ML 100 ML IV PRN (10:17)
[2021-10-26] MEDS ORDERED: Potassium Chloride LIQUID 20 MEQ/15 ML LIQUID PO ONE (10:48)
[2021-10-26] MEDS: Cefepime 2 GM in Dextrose 2 GM/50 ML BAG IV SCH ×2 (12:32→22:53)
[2021-10-26] MEDS: metroNIDAZOLE IV 500 MG/100ML 500 MG/100 ML BAG IVPB SCH ×2 (13:19→22:08)
[2021-10-26 15:53] LABS: Hematocrit 22 % (35-47); Hemoglobin 6.8 g/dL (12.0-16.0)
[2021-10-26] MEDS: Acetaminophen IV 1 GM/100ML 100 ML IV SCH (22:09)
[2021-10-26] MEDS: Pantoprazole VIAL 40 MG VIAL IV SCH (22:16)
[2021-10-27 01:38] LABS: Hematocrit 23 % (35-47); Hemoglobin 7.4 g/dL (12.0-16.0)
[2021-10-27] MEDS: Acetaminophen IV 1 GM/100ML 100 ML IV SCH ×3 (02:11→15:16)
[2021-10-27] MEDS: metroNIDAZOLE IV 500 MG/100ML 500 MG/100 ML BAG IVPB SCH (04:31)
[2021-10-27] MEDS: Saline FLUSH-PERIPHERAL 10 ML SYRINGE IV FLUSH SCH ×3 (04:31→23:12)
[2021-10-27] MEDS: Pantoprazole VIAL 40 MG VIAL IV SCH ×2 (08:07→23:18)
[2021-10-27] MEDS: Cefepime 2 GM in Dextrose 2 GM/50 ML BAG IV SCH ×2 (11:34→23:18)
[2021-10-27 13:45] LABS: Hematocrit 18 % (35-47); Hemoglobin 5.5 g/dL (12.0-16.0); Mean Corpuscular HGB Conc 30 g/dL (31-36); Mean Corpuscular Hemoglobin 27 pg (27-31); Mean Corpuscular Volume 88 fL (80-97); Platelet Count 140 10^3/uL (150-450); Red Blood Count 2.06 10^6 /uL (3.70-4.87); Red Cell Distribution Width 19 % (10-15); White Blood Count 12.1 10^3/uL (3.5-10.8)
[2021-10-27 13:50] LABS: INR 2.68 (0.86-1.15)
[2021-10-27 14:16] LABS: Calcium 6.5 mg/dL (8.6-10.3); eGFR CKD-EPI 49.8 (>60)
[2021-10-27 14:18] LABS: Activated Partial Thrombo Time 37.2 seconds (26.0-38.0); Fibrinogen 306.9 mg/dL (110.8-404.3)
[2021-10-27 14:20] LABS: Potassium 5.1 mmol/L (3.5-5.0)
[2021-10-27 22:39] LABS: Hematocrit 28 % (35-47); Hemoglobin 9.4 g/dL (12.0-16.0)
[2021-10-27] MEDS: Acetaminophen IV 1 GM/100ML 100 ML IV PRN (23:35)
[2021-10-28] MEDS: Saline FLUSH-PERIPHERAL 10 ML SYRINGE IV FLUSH SCH ×3 (03:19→19:54)
[2021-10-28] MEDS ORDERED: Norepinephrine 16MCG/ML BAG NS 4,000 MCG/250 ML BAG IV SCH ×2 (03:58→04:45)
[2021-10-28] MEDS: Norepinephrine 16MCG/ML BAGD5W 4,000 MCG/250 ML BAG IV ONE ×2 (04:03→04:52)
[2021-10-28 04:20] LABS: ABS Basophils 0.1 10^3/ul (0-0.2); ABS Lymphocytes 2.5 10^3/ul (1.0-4.8); ABS Neutrophils 17.1 10^3/ul (1.5-7.7); ABS Nucleated RBC 0.1 10^3/ul; Eosinophil % 0.1 %; Hematocrit 28 % (35-47); Hemoglobin 9.1 g/dL (12.0-16.0); Lymphocyte % 11.9 %; Mean Corpuscular HGB Conc 33 g/dL (31-36); Mean Corpuscular Hemoglobin 29 pg (27-31); Mean Corpuscular Volume 88 fL (80-97); Nucleated Red Blood Cells % 0.2; Platelet Count 117 10^3/uL (150-450); Red Blood Count 3.17 10^6 /uL (3.70-4.87); Red Cell Distribution Width 16 % (10-15); White Blood Count 20.7 10^3/uL (3.5-10.8)
[2021-10-28 04:32] LABS: INR 2.76 (0.86-1.15)
[2021-10-28 04:39] LABS: Calcium 6.6 mg/dL (8.6-10.3); Magnesium 1.9 mg/dL (1.9-2.7); Potassium 4.8 mmol/L (3.5-5.0); eGFR CKD-EPI 46.4 (>60)
[2021-10-28] MEDS ORDERED: Magnesium Sulfate IV 1GM/100ML 1 GM/100 ML BAG IV ONE (07:18)
[2021-10-28] MEDS: Acetaminophen IV 1 GM/100ML 100 ML IV PRN (08:09)
[2021-10-28] MEDS: Pantoprazole VIAL 40 MG VIAL IV SCH ×2 (08:15→21:06)
[2021-10-28] MEDS: Dextran 70/Hypromellose Tears Eye Drops 15 ml BTL (for Artificials Tears) BOTH EYES PRN (08:56)
[2021-10-28] MEDS: Cefepime 2 GM in Dextrose 2 GM/50 ML BAG IV SCH (11:59)
[2021-10-28] MEDS: Acetaminophen IV 1 GM/100ML 100 ML IV SCH ×2 (14:03→22:19)
[2021-10-28 14:28] LABS: Hematocrit 28 % (35-47); Hemoglobin 9.2 g/dL (12.0-16.0)
[2021-10-28 15:09] LABS: Calcium 6.8 mg/dL (8.6-10.3); Potassium 4.6 mmol/L (3.5-5.0); eGFR CKD-EPI 44.7 (>60)
[2021-10-28] MEDS: Norepinephrine 16MCG/ML BAGD5W 4,000 MCG/250 ML BAG IV SCH (16:23)
[2021-10-29] MEDS: Cefepime 2 GM in Dextrose 2 GM/50 ML BAG IV SCH ×2 (00:30→11:22)
[2021-10-29] MEDS: Saline FLUSH-PERIPHERAL 10 ML SYRINGE IV FLUSH SCH ×3 (03:33→18:27)
[2021-10-29 04:38] LABS: ABS Basophils 0.1 10^3/ul (0-0.2); ABS Lymphocytes 2.2 10^3/ul (1.0-4.8); ABS Monocytes 0.7 10^3/ul (0-0.8); ABS Neutrophils 16.1 10^3/ul (1.5-7.7); Eosinophil % 0.3 %; Hematocrit 25 % (35-47); Hemoglobin 8.4 g/dL (12.0-16.0); Lymphocyte % 11.3 %; Mean Corpuscular HGB Conc 33 g/dL (31-36); Mean Corpuscular Hemoglobin 29 pg (27-31); Mean Corpuscular Volume 87 fL (80-97); Mean Platelet Volume 7.7 fL (7.4-10.4); Nucleated Red Blood Cells % 0.2; Platelet Count 123 10^3/uL (150-450); Red Blood Count 2.92 10^6 /uL (3.70-4.87); Red Cell Distribution Width 17 % (10-15); White Blood Count 19.1 10^3/uL (3.5-10.8)
[2021-10-29 05:19] LABS: Calcium 6.8 mg/dL (8.6-10.3); Magnesium 2.1 mg/dL (1.9-2.7); Phosphorus 4.3 mg/dL (2.5-5.0); Potassium 4.6 mmol/L (3.5-5.0); eGFR CKD-EPI 46.9 (>60)
[2021-10-29 05:22] LABS: INR 1.87 (0.86-1.15)
[2021-10-29] MEDS: Acetaminophen IV 1 GM/100ML 100 ML IV SCH ×3 (06:26→21:37)
[2021-10-29] MEDS: Norepinephrine 16MCG/ML BAGD5W 4,000 MCG/250 ML BAG IV SCH (06:27)
[2021-10-29] MEDS: Pantoprazole VIAL 40 MG VIAL IV SCH ×2 (08:37→21:27)
[2021-10-29] MEDS ORDERED: Piperacillin/Tazobac ADVAN 3.375 GM in NS 0.9% 100 ml BAG 100 ML IV ONE (08:55)
[2021-10-29] MEDS ORDERED: Cefepime ADVAN 1 GM in NS 0.9% 50 ML 50 ML IVPB SCH (09:00)
[2021-10-29] MEDS ORDERED: Zosyn per Pharmacy NOTE FOLLOW UP SCH (09:00)
[2021-10-30] MEDS: Cefepime 2 GM in Dextrose 2 GM/50 ML BAG IV SCH ×2 (00:27→13:41)
[2021-10-30] MEDS: Saline FLUSH-PERIPHERAL 10 ML SYRINGE IV FLUSH SCH ×3 (04:08→20:09)
[2021-10-30 04:51] LABS: ABS Basophils 0.1 10^3/ul (0-0.2); ABS Eosinophils 0.2 10^3/ul (0-0.6); ABS Lymphocytes 2.2 10^3/ul (1.0-4.8); ABS Monocytes 0.5 10^3/ul (0-0.8); ABS Neutrophils 14.6 10^3/ul (1.5-7.7); Hematocrit 21 % (35-47); Hemoglobin 6.6 g/dL (12.0-16.0); Lymphocyte % 12.7 %; Mean Corpuscular HGB Conc 32 g/dL (31-36); Mean Corpuscular Hemoglobin 28 pg (27-31); Mean Corpuscular Volume 88 fL (80-97); Mean Platelet Volume 8.1 fL (7.4-10.4); Nucleated Red Blood Cells % 0.1; Platelet Count 89 10^3/uL (150-450); Red Blood Count 2.35 10^6 /uL (3.70-4.87); Red Cell Distribution Width 17 % (10-15); White Blood Count 17.7 10^3/uL (3.5-10.8)
[2021-10-30 04:56] LABS: INR 1.48 (0.86-1.15)
[2021-10-30 05:27] LABS: Calcium 6.7 mg/dL (8.6-10.3); Potassium 4.3 mmol/L (3.5-5.0); eGFR CKD-EPI 46.9 (>60)
[2021-10-30] MEDS: Acetaminophen IV 1 GM/100ML 100 ML IV SCH ×3 (06:09→22:47)
[2021-10-30] MEDS: Pantoprazole VIAL 40 MG VIAL IV SCH ×2 (09:11→21:09)
[2021-10-30] MEDS ORDERED: Furosemide 40 mg/4 ml IV VIAL IV SLOW PU ONE ×2 (10:54→11:10)
[2021-10-30] MEDS: Norepinephrine 16MCG/ML BAGD5W 4,000 MCG/250 ML BAG IV SCH ×2 (11:02→20:09)
[2021-10-30] MEDS ORDERED: Furosemide 40 mg/4 ml IV VIAL ONE (11:20)
[2021-10-30] MEDS ORDERED: Hydrocortisone INJ 100 MG/2ML 2 ML VIAL IV ONE (13:29)
[2021-10-30 13:57] VITALS: BP 124/44
[2021-10-30 14:36] LABS: Hematocrit 28 % (35-47); Hemoglobin 9.1 g/dL (12.0-16.0)
[2021-10-30] MEDS ORDERED: Hydrocortisone INJ 100 MG/2ML 2 ML VIAL IV SCH (22:00)
[2021-10-31] MEDS: Cefepime 2 GM in Dextrose 2 GM/50 ML BAG IV SCH ×2 (00:48→13:10)
[2021-10-31] MEDS: Norepinephrine 16MCG/ML BAGD5W 4,000 MCG/250 ML BAG IV SCH ×6 (01:13→21:32)
[2021-10-31] MEDS: Saline FLUSH-PERIPHERAL 10 ML SYRINGE IV FLUSH SCH ×2 (04:37→12:54)
[2021-10-31 06:12] LABS: ABS Basophils 0.1 10^3/ul (0-0.2); ABS Lymphocytes 1.1 10^3/ul (1.0-4.8); ABS Monocytes 0.6 10^3/ul (0-0.8); ABS Neutrophils 22.2 10^3/ul (1.5-7.7); Hematocrit 29 % (35-47); Hemoglobin 9.5 g/dL (12.0-16.0); Lymphocyte % 4.6 %; Mean Corpuscular HGB Conc 33 g/dL (31-36); Mean Corpuscular Hemoglobin 29 pg (27-31); Mean Corpuscular Volume 90 fL (80-97); Mean Platelet Volume 8.2 fL (7.4-10.4); Nucleated Red Blood Cells % 0.1; Platelet Count 85 10^3/uL (150-450); Red Blood Count 3.24 10^6 /uL (3.70-4.87); Red Cell Distribution Width 16 % (10-15)
[2021-10-31] MEDS: Acetaminophen IV 1 GM/100ML 100 ML IV SCH ×3 (06:14→21:30)
[2021-10-31 07:00] LABS: Calcium 7.1 mg/dL (8.6-10.3); Magnesium 2.1 mg/dL (1.9-2.7); Potassium 4.5 mmol/L (3.5-5.0); eGFR CKD-EPI 44.2 (>60)
[2021-10-31 07:54] LABS: PCO2 Arterial 39 mmHg (35-45); PO2 Arterial 72 mmHg (80-100)
[2021-10-31] MEDS: Pantoprazole VIAL 40 MG VIAL IV SCH ×2 (08:44→21:30)
[2021-10-31] MEDS ORDERED: Rocuronium 50 mg VIAL 10 mg/ml 5 ml VIAL (50 mg) ONE (11:28)
[2021-10-31] MEDS ORDERED: Succinylcholine 200 mg VIAL 20 mg/ml 10 ml VIAL (200 mg) ONE (11:28)
[2021-10-31] MEDS ORDERED: Propofol 10 mg/ml 100 ML BTL 100 ML ONE (11:48)
[2021-10-31] MEDS ORDERED: Vasopressin 100 UNITS in D5W 250 ml BAG 245 ML IV SCH (12:15)
[2021-10-31] MEDS ORDERED: Propofol 10 mg/ml 100 ML BTL 100 ML IV SCH (13:00)
[2021-10-31] MEDS: Saline FLUSH-CENTRAL 10 ML SYRINGE CENT\\PICC SCH (13:03)
[2021-10-31 13:36] LABS: PCO2 Arterial 35 mmHg (35-45); PO2 Arterial 116 mmHg (80-100)
[2021-10-31] MEDS: Chlorhexidine MOUTHWASH 0.12% 15 ML UDC SWISH SPIT SCH ×3 (14:32→21:30)
[2021-10-31] MEDS ORDERED: Norepinephrine *QUAD STRENGTH* 16 mg/250 mL NS per protocol IV SCH (22:30)
[2021-11-01] MEDS: Saline FLUSH-CENTRAL 10 ML SYRINGE CENT\\PICC SCH (00:29)
[2021-11-01] MEDS: Chlorhexidine MOUTHWASH 0.12% 15 ML UDC SWISH SPIT SCH ×3 (01:03→08:28)
[2021-11-01] MEDS: Cefepime 2 GM in Dextrose 2 GM/50 ML BAG IV SCH (01:03)
[2021-11-01] MEDS ORDERED: PHENYLEPHRINE DRIP IVPREMIX 50 MG/250 ML BAG IV SCH (05:00)
[2021-11-01 05:12] LABS: PCO2 Arterial 35 mmHg (35-45); PO2 Arterial 87 mmHg (80-100)
[2021-11-01 05:16] LABS: ABS Basophils 0.1 10^3/ul (0-0.2); ABS Lymphocytes 1.7 10^3/ul (1.0-4.8); ABS Monocytes 0.8 10^3/ul (0-0.8); ABS Neutrophils 25.5 10^3/ul (1.5-7.7); Hematocrit 31 % (35-47); Lymphocyte % 6.1 %; Mean Corpuscular HGB Conc 33 g/dL (31-36); Mean Corpuscular Hemoglobin 29 pg (27-31); Mean Corpuscular Volume 90 fL (80-97); Mean Platelet Volume 8.5 fL (7.4-10.4); Nucleated Red Blood Cells % 0.1; Platelet Count 41 10^3/uL (150-450); Red Blood Count 3.43 10^6 /uL (3.70-4.87); Red Cell Distribution Width 16 % (10-15); White Blood Count 28.2 10^3/uL (3.5-10.8)
[2021-11-01 05:30] LABS: Calcium 6.8 mg/dL (8.6-10.3); Phosphorus 5.1 mg/dL (2.5-5.0); Potassium 4.5 mmol/L (3.5-5.0); eGFR CKD-EPI 35.4 (>60)
[2021-11-01] MEDS: Acetaminophen IV 1 GM/100ML 100 ML IV SCH (05:55)
[2021-11-01] MEDS: Pantoprazole VIAL 40 MG VIAL IV SCH (08:27)
[2021-11-01] MEDS: PHENYLEPHRINE DRIP IVPREMIX 50 MG/250 ML BAG IV SCH ×2 (08:38→09:48)
[2021-11-01] MEDS: Dextran 70/Hypromellose Tears Eye Drops 15 ml BTL (for Artificials Tears) BOTH EYES PRN (11:13)
[2021-11-01] MEDS ORDERED: fentaNYL 100 mcg/2 ml 50 MCG/ML VIAL IV SLOW PU PRN (11:48)
== END 2021-11-01 13:05 | disposition expired | DRG 870 ==
LOC: ED 14:25 → SUATTDRO 17:06 → EDHOLD 17:06 → MEDTELE 21:27 → MED 10-11 19:44 → ICU 10-12 04:55
PROVIDERS: ADMIT Student in an Organized Health Care Education/Training Program; ATTEND Internal Medicine